=== PATIENT | female | born 1990 | race Two or more races ===

== ENCOUNTER 2017-05-20 16:12 | Emergency (ER) | payer OTHER ==
[~2017-05-20] VITALS: Ht 157.5 cm; Wt 63.5 kg
[2017-05-20 16:30] VITALS: BP 134/88
[2017-05-20] MEDS ORDERED: IV NORMAL SALINE 1000ML BAG 1,000 ML IV SCH (16:55)
--- NOTE | 2017-05-20 16:59 | PHYS DOC ---
Past Medical History Past Medical History: No Pertinent History Past Surgical History: No Surgical History Alcohol Use: Occasionally Drug Use: None Adult General Chief Complaint Chief Complaint: NAUSEA/VOMITING/DIARRHA HPI HPI Patient is a 26 year old [f__sex] who presents with [] Review of Systems Review of Systems Constitutional: Denies fever or chills [] Eyes: Denies change in visual acuity, redness, or eye pain [] HENT: Denies nasal congestion or sore throat [] Respiratory: Denies cough or shortness of breath [] Cardiovascular: No additional information not addressed in HPI [] GI: Denies abdominal pain, nausea, vomiting, bloody stools or diarrhea [] : Denies dysuria or hematuria [] Musculoskeletal: Denies back pain or joint pain [] Integument: Denies rash or skin lesions [] Neurologic: Denies headache, focal weakness or sensory changes [] Endocrine: Denies polyuria or polydipsia [] All other systems were reviewed and found to be within normal limits, except as documented in this note. Current Medications Current Medications Current Medications Medications (Trade) Dose Ordered Sig/Tomas Start Time Stop Time Status Last Admin Dose Admin Fentanyl Citrate (Fentanyl 2ml Vial) 25 mcg PRN Q15MIN PRN 05/20/17 17:00 05/21/17 16:59 05/20/17 17:26 25 MCG Ondansetron HCl (Zofran) 4 mg 1X ONCE 05/20/17 17:00 05/20/17 17:01 DC 05/20/17 17:25 4 MG Sodium Chloride (Normal Saline Flush) 10 ml QSHIFT PRN 05/20/17 17:00 05/20/17 17:25 10 ML Allergies Allergies Allergies Coded Allergies Type Severity Reaction Last Updated Verified No Known Drug Allergies 05/20/17 No Physical Exam Physical Exam Constitutional: Well developed, well nourished, no acute distress, non-toxic appearance. [] HENT: Normocephalic, atraumatic, bilateral external ears normal, oropharynx moist, no oral exudates, nose normal. [] Eyes: PERRLA, EOMI, conjunctiva normal, no discharge. [] Neck: Normal range of motion, no tenderness, supple, no stridor. [] Cardiovascular:Heart rate regular rhythm, no murmur [] Lungs & Thorax: Bilateral breath sounds clear to auscultation [] Abdomen: Bowel sounds normal, soft, no tenderness, no masses, no pulsatile masses. [] Skin: Warm, dry, no erythema, no rash. [] Back: No tenderness, no CVA tenderness. [] Extremities: No tenderness, no cyanosis, no clubbing, ROM intact, no edema. [] Neurologic: Alert and oriented X 3, normal motor function, normal sensory function, no focal deficits noted. [] Psychologic: Affect normal, judgement normal, mood normal. [] Current Patient Data Vital Signs Vital Signs Date Time Temp Pulse Resp B/P (MAP) Pulse Ox O2 Delivery O2 Flow Rate FiO2 05/20/17 17:26 Room Air 05/20/17 16:30 98.8 112 20 134/88 (103) 97 98.8 Lab Values Laboratory Tests Test 05/20/17 16:38 05/20/17 17:00 05/20/17 17:10 POC Urine HCG, Qualitative Hcg negative (Negative) Urine Collection Type Unknown Urine Color Marianela Urine Clarity Clear Urine pH 6.5 Urine Specific Edmond 1.025 Urine Protein Negative mg/dL (NEG-TRACE) Urine Glucose (UA) Negative mg/dL (NEG) Urine Ketones (Stick) Negative mg/dL (NEG) Urine Blood Negative (NEG) Urine Nitrite Negative (NEG) Urine Bilirubin Negative (NEG) Urine Urobilinogen Dipstick 1.0 mg/dL (0.2 mg/dL) Urine Leukocyte Esterase Small (NEG) Urine RBC 1-2 /HPF (0-2) Urine WBC 5-10 /HPF (0-4) Urine Squamous Epithelial Cells Mod /LPF Urine Bacteria Many /HPF (0-FEW) Urine Mucus Marked /LPF White Blood Count 12.3 x10^3/uL (4.0-11.0) H Red Blood Count 4.74 x10^6/uL (3.50-5.40) Hemoglobin 14.7 g/dL (12.0-15.5) Hematocrit 44.5 % (36.0-47.0) Mean Corpuscular Volume 94 fL (79-100) Mean Corpuscular Hemoglobin 31 pg (25-35) Mean Corpuscular Hemoglobin Concent 33 g/dL (31-37) Red Cell Distribution Width 12.6 % (11.5-14.5) Platelet Count 259 x10^3/uL (140-400) Neutrophils (%) (Auto) 83 % (31-73) H Lymphocytes (%) (Auto) 10 % (24-48) L Monocytes (%) (Auto) 6 % (0-9) Eosinophils (%) (Auto) 1 % (0-3) Basophils (%) (Auto) 0 % (0-3) Neutrophils # (Auto) 10.3 x10^3uL (1.8-7.7) H Lymphocytes # (Auto) 1.2 x10^3/uL (1.0-4.8) Monocytes # (Auto) 0.7 x10^3/uL (0.0-1.1) Eosinophils # (Auto) 0.1 x10^3/uL (0.0-0.7) Basophils # (Auto) 0.0 x10^3/uL (0.0-0.2) Sodium Level 140 mmol/L (136-145) Potassium Level 3.0 mmol/L (3.5-5.1) L Chloride Level 100 mmol/L (98-107) Carbon Dioxide Level 30 mmol/L (21-32) Anion Gap 10 (6-14) Blood Urea Nitrogen 8 mg/dL (7-20) Creatinine 0.7 mg/dL (0.6-1.0) Estimated GFR (Cockcroft-Gault) 100.4 Glucose Level 103 mg/dL (70-99) H Calcium Level 8.5 mg/dL (8.5-10.1) Total Bilirubin 0.3 mg/dL (0.2-1.0) Direct Bilirubin 0.1 mg/dL (0.0-0.2) Aspartate Amino Transferase (AST) 54 U/L (15-37) H Alanine Aminotransferase (ALT) 6 U/L (14-59) L Alkaline Phosphatase 69 U/L (46-116) Total Protein 7.2 g/dL (6.4-8.2) Albumin 3.2 g/dL (3.4-5.0) L Lipase 102 U/L (73-393) Laboratory Tests 05/20/17 17:10 Laboratory Tests 05/20/17 17:10 EKG EKG [] Radiology/Procedures Radiology/Procedures [] Course & Med Decision Making Course & Med Decision Making Pertinent Labs and Imaging studies reviewed. (See chart for details) []Patient tells me that their symptoms given during CC are improved. We reviewed labs with family at the bedside patient has a white count mildly elevated at 12.7 likely secondary to the effects of the nausea vomiting diarrhea. Patient is a low potassium of 3.0 likely from GI losses. Patient's CBC and CMP otherwise unremarkable. Patient's urinalysis demonstrates some bacteria and somewhat but cells consistent with any acute UTI. Patient does have a few epithelial cells as contaminated in the urine I will send it for culture prior to initiating treatment. Patient is not . Diarrheal story is not concerning for infectious etiology like some Shigella, Shigella, yserina , Escherichia coli. Patient's signs of improved patient is no longer tachycardic abdomen is soft and secondary exam. Dragon Disclaimer Dragon Disclaimer This electronic medical record was generated, in whole or in part, using a voice recognition dictation system. Departure Departure Impression: Primary Impression: Nausea and vomiting Additional Impressions: Diarrhea UTI (urinary tract infection) Disposition: HOME, SELF-CARE Condition: IMPROVED Referrals: NON,STAFF (PCP) Patient Instructions: Diarrhea, Nausea and Vomiting, Urinary Tract Infection Additional Instructions: My discharge plan Follow up: In addition patient is asked to followup with their primary doctor, within a week for followup examination and to address patient's ongoing medical conditions. . Patient is advised that in the Emergency Department primary complaints are addressed and only in light of known signs and symptoms. Patient should return immediately to the emergency department if new signs and symptoms develop or patient's condition worsens in any way. At time of discharge patient was in stable condition and had verbalized understanding of the discharge instructions. Although there is no obvious evidence of appendicitis or intra-abdominal catastrophe at this time requiring surgical intervention or immediate medical management you could still develop these issues in the future. I would ask that you return immediately for any increasing symptoms question concerns. Scripts Ondansetron (ZOFRAN ODT) 4 Mg Tab.rapdis 4 MG PO BID Y for NAUSEA/VOMITING for 5 Days, #10 TAB Prov: SHAAN CHA MD 05/20/17 Diphenoxylate Hcl/Atropine (LOMOTIL TABLET) 1 Each Tablet 1 TAB PO QID, #20 TAB Prov: SHAAN CHA MD 05/20/17 Ciprofloxacin Hcl (CIPRO) 500 Mg Tablet 1 TAB PO BID, #20 TAB Prov: SHAAN CHA MD 05/20/17 Problem Qualifiers SHAAN CHA MD May 20, 2017 16:59
[2017-05-20] MEDS ORDERED: ONDANSETRON PF 4 MG/2 ML VIAL. IV ONE (17:00)
[2017-05-20] MEDS ORDERED: fentaNYL PF VIAL 100 MCG/2 ML VIAL IV PRN (17:00)
[2017-05-20] MEDS ORDERED: 0.9 % SODIUM CHLORIDE 10 ML DISP.SYRIN. IV PRN (17:00)
[2017-05-20 17:12] LABS: BILIRUBIN,URINE NEGATIVE (NEG); GLUCOSE,URINE NEGATIVE (NEG); NITRITE,URINE NEGATIVE (NEG); PH,URINE 6.5; PROTEIN,URINE NEGATIVE (NEG-TRACE)
[2017-05-20 17:14] LABS: BASO % 0 % (0-3); EOS % 1 % (0-3); HEMATOCRIT 44.5 % (36.0-47.0); HEMOGLOBIN 14.7 g/dL (12.0-15.5); LYMPH # 1.2 x10^3/uL (1.0-4.8); LYMPH % 10 % (24-48); MEAN CORPUSCULAR HEMOGLOBIN 31 pg (25-35); MEAN CORPUSCULAR HGB CONC 33 g/dL (31-37); MEAN CORPUSCULAR VOLUME 94 fL (79-100); MONO % 6 % (0-9); NEUT % 83 % (31-73); PLATELET COUNT 259 x10^3/uL (140-400); RED BLOOD COUNT 4.74 x10^6/uL (3.50-5.40); RED CELL DISTRIBUTION WIDTH 12.6 % (11.5-14.5); WHITE BLOOD COUNT 12.3 x10^3/uL (4.0-11.0)
[2017-05-20 17:20] LABS: BACTERIA,URINE MANY /HPF (0-FEW); SQUAMOUS EPITHELIAL CELL,UR MOD /LPF
[2017-05-20 17:36] LABS: CALCIUM 8.5 mg/dL (8.5-10.1); CREATININE 0.7 mg/dL (0.6-1.0); GFR 100.4
[2017-05-20 17:41] LABS: ALBUMIN 3.2 g/dL (3.4-5.0); DIRECT BILIRUBIN 0.1 mg/dL (0.0-0.2); TOTAL BILIRUBIN 0.3 mg/dL (0.2-1.0); TOTAL PROTEIN 7.2 g/dL (6.4-8.2)
[2017-05-20] MEDS ORDERED: DIPH1TAB PO (18:05)
[2017-05-20] MEDS ORDERED: CIPR500T94 PO (18:05)
[2017-05-20] MEDS ORDERED: ONDA4TAB10 PO (18:05)
== END 2017-05-20 18:14 | disposition home or self-care (01) ==
LOC: ER 16:12
DX: N39.0 Urinary tract infection, site not specified (principal); R19.7 Diarrhea, unspecified
CPT/HCPCS: 36415; 80048; 80076; 81001; 81025; 83690; 85025; 87086; 96361; 96374; 96375; 99284; J2405; J3010; J7030

== ENCOUNTER 2018-03-04 01:05 | Emergency (ER) | payer OTHER ==
[~2018-03-04] VITALS: Ht 160 cm; Wt 65.8 kg
[~2018-03-04 01:05] MED LIST: CIPR500T94 PO; DIPH1TAB PO; ONDA4TAB10 PO
[2018-03-04 02:13] VITALS: BP 132/65
[2018-03-04] MEDS ORDERED: PROCHLORPERAZINE 10 MG/2 ML VIAL. IV ONE (03:15)
[2018-03-04] MEDS ORDERED: IV NORMAL SALINE 1000ML BAG 1,000 ML IV ONE (03:15)
[2018-03-04] MEDS ORDERED: diphenhydrAMINE 50 MG/ML VIAL IVP ONE (03:15)
--- NOTE | 2018-03-04 04:18 | PHYS DOC ---
Past Medical History Past Medical History: No Pertinent History Past Surgical History: No Surgical History Alcohol Use: Occasionally Drug Use: None Adult General Chief Complaint Chief Complaint: HEADACHE HPI HPI Patient is a 27 year old female who presents with headache. Patient complains of a frontotemporal headache over the last 2 days. She does have a prior history of headaches and does have migraine medication at home. She took her medicine this evening but it did not relieve her symptoms. She has some photophobia and mild nausea but no vomiting. She has not had a fever, chills, neck stiffness, or rash. She states this headache feels very similar to prior headaches she has had in the past. The headache did not begin suddenly. Review of Systems Review of Systems Constitutional: Denies fever or chills Eyes: Denies change in visual acuity HENT: Denies nasal congestion Respiratory: Denies cough Cardiovascular: No additional information GI: Denies abdominal complaints : Denies dysuria or hematuria Integument: Denies rash or skin lesions Neurologic: Denies focal neuro complaints Endocrine: Denies polyuria All other systems were reviewed and found to be within normal limits, except as documented in this note. Current Medications Current Medications Current Medications Medications (Trade) Dose Ordered Sig/Tomas Start Time Stop Time Status Last Admin Dose Admin Diphenhydramine HCl (Benadryl) 25 mg 1X ONCE 03/04/18 03:15 03/04/18 03:16 DC 03/04/18 03:22 25 MG Prochlorperazine Edisylate (Compazine) 10 mg 1X ONCE 03/04/18 03:15 03/04/18 03:16 DC 03/04/18 03:22 10 MG Sodium Chloride 1,000 ml @ 1,000 mls/hr 1X ONCE 03/04/18 03:15 03/04/18 04:14 DC 03/04/18 03:22 1,000 MLS/HR Allergies Allergies Allergies Coded Allergies Type Severity Reaction Last Updated Verified No Known Drug Allergies 05/20/17 No Physical Exam Physical Exam Constitutional: Well developed, well nourished, no acute distress, non-toxic appearance HENT: Normocephalic, atraumatic, bilateral external ears normal, oropharynx moist Eyes: PERRLA, EOMI, conjunctiva normal, no discharge Neck: Normal range of motion, no tenderness, supple Cardiovascular:Heart rate regular rhythm, no murmur Lungs & Thorax: Bilateral breath sounds clear to auscultation Abdomen: Bowel sounds normal, soft Skin: Warm, dry, no erythema, no rash Extremities: Normal exam Neurologic: Alert and oriented X 3, normal motor function, normal sensory function, no focal deficits noted Psychologic: Affect normal Current Patient Data Vital Signs Vital Signs Date Time Temp Pulse Resp B/P (MAP) Pulse Ox O2 Delivery O2 Flow Rate FiO2 03/04/18 01:35 98.1 87 16 124/77 (93) 98 Room Air 98.1 Lab Values Laboratory Tests Test 03/04/18 03:28 POC Urine HCG, Qualitative Hcg negative (Negative) EKG EKG [] Radiology/Procedures Radiology/Procedures [] Course & Med Decision Making Course & Med Decision Making Pertinent Labs and Imaging studies reviewed. (See chart for details) In the emergency department for a migraine headache which she stated to be very typical for her normal syndrome. She was given a single dose of Compazine and Benadryl which did completely resolve her symptoms. She had no nausea or vomiting. Her neurologic exam was nonfocal. She had no signs of meningismus. Patient was discharged home. She was advised to follow-up with her primary care doctor or return to the ER for any new or worsening symptoms. Dragon Disclaimer Dragon Disclaimer This electronic medical record was generated, in whole or in part, using a voice recognition dictation system. Departure Departure Referrals: UNKNOWN PCP NAME (PCP) ADAIR GRIER DO Mar 04, 2018 04:18
== END 2018-03-04 04:40 | disposition home or self-care (01) ==
LOC: ER 01:05
DX: R51 Headache (principal); G43.909 Migraine, unspecified, not intractable, without status migrainosus
CPT/HCPCS: 81025; 96374; 96375; 99284; J0780; J1200; J7030

== ENCOUNTER 2018-05-22 23:40 | Emergency (ER) | payer OTHER ==
[~2018-05-22] VITALS: Ht 157.5 cm; Wt 65.8 kg
[2018-05-22 23:57] VITALS: BP 141/90
[2018-05-23] MEDS ORDERED: METH4TAB2 PO (00:15)
[2018-05-23] MEDS ORDERED: DICL50TA2 PO (00:15)
[2018-05-23] MEDS ORDERED: CYCL10TA2 PO (00:15)
--- NOTE | 2018-05-23 00:15 | PHYS DOC ---
Past Medical History Past Medical History: No Pertinent History Past Surgical History: No Surgical History Alcohol Use: Occasionally Drug Use: None Adult General Chief Complaint Chief Complaint: HIP PAIN HPI HPI Patient is a 27 year old female with no significant medical history who presents today complaining of mild bilateral low back radiating to bilateral lower extremities that began 2 days ago. Denies any known injury. Denies any urgency frequency dysuria. Denies any chance she is . States the pain is worse on certain movements. States has been taking ibuprofen but the pain has not cleared all the way. Review of Systems Review of Systems Constitutional: Denies fever or chills [] Eyes: Denies change in visual acuity, redness, or eye pain [] HENT: Denies nasal congestion or sore throat [] Respiratory: Denies cough or shortness of breath [] Cardiovascular: No additional information not addressed in HPI [] GI: Denies abdominal pain, nausea, vomiting, bloody stools or diarrhea [] : Denies dysuria or hematuria [] Musculoskeletal: Reports bilateral low back pain radiating to bilateral lower extremities Integument: Denies rash or skin lesions [] Neurologic: Denies headache, focal weakness or sensory changes [] All other systems were reviewed and found to be within normal limits, except as documented in this note. Current Medications Current Medications Current Medications Medications (Trade) Dose Ordered Sig/[facility] Start Time Stop Time Status Last Admin Dose Admin Acetaminophen/ Hydrocodone Bitart (Lortab 5/325) 1 tab 1X ONCE 05/23/18 00:30 05/23/18 00:31 Cyclobenzaprine HCl (Flexeril) 10 mg 1X ONCE 05/23/18 00:15 05/23/18 00:16 UNV Naproxen (Naprosyn) 500 mg 1X STAT 05/23/18 00:09 05/23/18 00:10 UNV Allergies Allergies Allergies Coded Allergies Type Severity Reaction Last Updated Verified No Known Drug Allergies 05/20/17 No Physical Exam Physical Exam Constitutional: Well developed, well nourished, no acute distress, non-toxic appearance. [] HENT: Normocephalic, atraumatic, bilateral external ears normal, oropharynx moist, no oral exudates, nose normal. [] Eyes: PERRLA, EOMI, conjunctiva normal, no discharge. [] Neck: Normal range of motion, no tenderness, supple, no stridor. [] Cardiovascular:Heart rate regular rhythm, no murmur [] Lungs & Thorax: Bilateral breath sounds clear to auscultation [] Abdomen: Bowel sounds normal, soft, no tenderness, no masses, no pulsatile masses. [] Skin: Warm, dry, no erythema, no rash. [] Back: No tenderness, no CVA tenderness. [] Extremities: No tenderness, no cyanosis, no clubbing, ROM intact, no edema. [] Neurologic: Alert and oriented X 3, normal motor function, normal sensory function, no focal deficits noted. [] Psychologic: Affect normal, judgement normal, mood normal. [] Current Patient Data Vital Signs Vital Signs Date Time Temp Pulse Resp B/P (MAP) Pulse Ox O2 Delivery O2 Flow Rate FiO2 05/22/18 23:57 97.9 102 16 141/90 (107) 98 Room Air 97.9 EKG EKG [] Radiology/Procedures Radiology/Procedures [] Course & Med Decision Making Course & Med Decision Making Pertinent Labs and Imaging studies reviewed. (See chart for details) This is a 27-year-old female patient presenting to the ED today with pain suspicious of sciatica. Will be discharged with Medrol Dosepak, cyclobenzaprine and diclofenac. Heat recommended to the lumbar spine. Follow-up with PCP in 1-2 weeks. Tawanna Disclaimer Tawanna Disclaimer This electronic medical record was generated, in whole or in part, using a voice recognition dictation system. Departure Departure Impression: Primary Impression: Sciatic leg pain Additional Impression: Low back pain Disposition: 01 HOME, SELF-CARE Condition: STABLE Referrals: UNKNOWN PCP NAME (PCP) follow up in 1-2 weeks Patient Instructions: Sciatica Additional Instructions: You were evaluated in the emergency room for pain. We put you on medications, take them as needed for pain. Apply heat to the affected areas. Follow-up with your own doctor in 1-2 weeks as needed. Scripts Cyclobenzaprine Hcl (CYCLOBENZAPRINE HCL) 10 Mg Tablet 1 TAB PO TID, #30 TAB Prov: MUTUNGA,IAM [employer] 05/23/18 Diclofenac Potassium (DICLOFENAC POTASSIUM) 50 Mg Tablet 1 TAB PO BID, #60 TAB 0 Refills Prov: MUTUNGA,IAM [employer] 05/23/18 Methylprednisolone (MEDROL) 4 Mg Tab.ds.pk 1 PKG PO UD, #1 PKG Prov: IAM MCGRATH [employer] 05/23/18 Problem Qualifiers Additional Impression: Low back pain Chronicity: acute Back pain laterality: bilateral Sciatica presence: with sciatica Sciatica laterality: bilateral sciatica Qualified Codes: M54.42 - Lumbago with sciatica, left side; M54.41 - Lumbago with sciatica, right side IAM MCGRATH JUNE May 23, 2018 00:15
[2018-05-23] MEDS: HYDROcodone/APAP 5/325MG 1 TAB TABLET PO ONE (00:20)
[2018-05-23] MEDS: CYCLOBENZAPRINE 10 MG TABLET. PO ONE (00:20)
[2018-05-23] MEDS: NAPROXEN 500 MG TABLET PO ONE (00:20)
== END 2018-05-23 00:23 | disposition home or self-care (01) ==
LOC: ER 23:40
DX: M54.42 Lumbago with sciatica, left side (principal); M54.41 Lumbago with sciatica, right side
CPT/HCPCS: 99284

== ENCOUNTER 2018-06-07 23:39 | Emergency (ER) | payer OTHER ==
[~2018-06-07] VITALS: Ht 157.5 cm; Wt 67.1 kg
[~2018-06-07 23:39] MED LIST changes: +CYCL10TA2 PO; +DICL50TA2 PO; +METH4TAB2 PO
--- NOTE | 2018-06-08 00:32 | PHYS DOC ---
Past Medical History Past Medical History: No Pertinent History Past Surgical History: No Surgical History Alcohol Use: Occasionally Drug Use: None Adult General Chief Complaint Chief Complaint: ABDOMINAL PAIN HPI HPI Patient is a 27 year old female who presents with mid abdominal pain. This started several hours prior to arrival. Some nausea, no vomiting. Cramping sensation. No change in food. Patient did start her menses today. No worse than usual for her menses and this discomfort is an a different location. No history of similar discomfort. No home medicines attempted. Pain is moderate in intensity. Nothing seems to make it better or worse.[] Review of Systems Review of Systems Constitutional: Denies fever or chills [] Eyes: Denies change in visual acuity, redness, or eye pain [] HENT: Denies nasal congestion or sore throat [] Respiratory: Denies cough or shortness of breath [] Cardiovascular: No chest pain or palpitations[] GI: See history of present illness[] : Denies dysuria or hematuria [] Musculoskeletal: Denies back pain or joint pain [] Integument: Denies rash or skin lesions [] Neurologic: Denies headache, focal weakness or sensory changes. Some dizziness. Described as a lightheaded sensation [] Endocrine: Denies polyuria or polydipsia [] All other systems were reviewed and found to be within normal limits, except as documented in this note. Current Medications Current Medications Current Medications Medications (Trade) Dose Ordered Sig/Tomas Start Time Stop Time Status Last Admin Dose Admin Hyoscyamine (Anaspaz) 0.125 mg ONCE ONCE 06/08/18 01:00 06/08/18 01:01 DC 06/08/18 01:10 0.125 MG Info (CONTRAST GIVEN -- Rx MONITORING) 1 each PRN DAILY PRN 06/08/18 02:15 06/10/18 02:14 Iohexol (Omnipaque 300 Mg/ml) 75 ml 1X ONCE 06/08/18 02:30 06/08/18 02:31 DC 06/08/18 02:11 75 ML Ondansetron HCl (Zofran) 4 mg 1X ONCE 06/08/18 01:00 06/08/18 01:01 DC 06/08/18 01:10 4 MG Sodium Chloride 1,000 ml @ 1,000 mls/hr Q1H 06/08/18 01:00 06/08/18 01:59 DC 06/08/18 01:10 1,000 MLS/HR Allergies Allergies Allergies Coded Allergies Type Severity Reaction Last Updated Verified No Known Drug Allergies 05/20/17 No Physical Exam Physical Exam Constitutional: Well developed, well nourished, no acute distress, non-toxic appearance. [] HENT: Normocephalic, atraumatic, bilateral external ears normal, oropharynx moist, no oral exudates, nose normal. [] Eyes: PERRLA, EOMI, conjunctiva normal, no discharge. [] Neck: Normal range of motion, no tenderness, supple, no stridor. [] Cardiovascular:Heart rate regular rhythm, no murmur [] Lungs & Thorax: Bilateral breath sounds clear to auscultation [] Abdomen: Bowel sounds normal, soft, periumbilical, no masses, no pulsatile masses. [] Skin: Warm, dry, no erythema, no rash. [] Back: No tenderness, no CVA tenderness. [] Extremities: No tenderness, no cyanosis, no clubbing, ROM intact, no edema. [] Neurologic: Alert and oriented X 3, normal motor function, normal sensory function, no focal deficits noted. [] Psychologic: Affect normal, judgement normal, mood normal. [] Current Patient Data Vital Signs Vital Signs Date Time Temp Pulse Resp B/P (MAP) Pulse Ox O2 Delivery O2 Flow Rate FiO2 06/08/18 00:20 98.4 83 16 135/84 (101) 97 Room Air 98.4 Lab Values Laboratory Tests Test 06/08/18 00:01 06/08/18 00:30 06/08/18 01:05 Urine Collection Type Unknown Urine Color Yellow Urine Clarity Clear Urine pH 6.0 Urine Specific [place] 1.025 Urine Protein Negative mg/dL (NEG-TRACE) Urine Glucose (UA) Negative mg/dL (NEG) Urine Ketones (Stick) Negative mg/dL (NEG) Urine Blood Large (NEG) Urine Nitrite Negative (NEG) Urine Bilirubin Negative (NEG) Urine Urobilinogen Dipstick 0.2 mg/dL (0.2 mg/dL) Urine Leukocyte Esterase Small (NEG) Urine RBC 0 /HPF (0-2) Urine WBC 5-10 /HPF (0-4) Urine Squamous Epithelial Cells Mod /LPF Urine Bacteria Few /HPF (0-FEW) Urine Mucus Marked /LPF POC Urine HCG, Qualitative Hcg negative (Negative) White Blood Count 9.9 x10^3/uL (4.0-11.0) Red Blood Count 4.45 x10^6/uL (3.50-5.40) Hemoglobin 14.6 g/dL (12.0-15.5) Hematocrit 41.2 % (36.0-47.0) Mean Corpuscular Volume 93 fL (79-100) Mean Corpuscular Hemoglobin 33 pg (25-35) Mean Corpuscular Hemoglobin Concent 35 g/dL (31-37) Red Cell Distribution Width 12.2 % (11.5-14.5) Platelet Count 259 x10^3/uL (140-400) Neutrophils (%) (Auto) 75 % (31-73) H Lymphocytes (%) (Auto) 14 % (24-48) L Monocytes (%) (Auto) 7 % (0-9) Eosinophils (%) (Auto) 3 % (0-3) Basophils (%) (Auto) 1 % (0-3) Neutrophils # (Auto) 7.4 x10^3uL (1.8-7.7) Lymphocytes # (Auto) 1.4 x10^3/uL (1.0-4.8) Monocytes # (Auto) 0.7 x10^3/uL (0.0-1.1) Eosinophils # (Auto) 0.3 x10^3/uL (0.0-0.7) Basophils # (Auto) 0.1 x10^3/uL (0.0-0.2) Sodium Level 138 mmol/L (136-145) Potassium Level 4.0 mmol/L (3.5-5.1) Chloride Level 101 mmol/L (98-107) Carbon Dioxide Level 25 mmol/L (21-32) Anion Gap 12 (6-14) Blood Urea Nitrogen 8 mg/dL (7-20) Creatinine 0.7 mg/dL (0.6-1.0) Estimated GFR (Cockcroft-Gault) 99.6 BUN/Creatinine Ratio 11 (6-20) Glucose Level 91 mg/dL (70-99) Calcium Level 9.5 mg/dL (8.5-10.1) Total Bilirubin 0.4 mg/dL (0.2-1.0) Aspartate Amino Transferase (AST) 131 U/L (15-37) H Alanine Aminotransferase (ALT) 19 U/L (14-59) Alkaline Phosphatase 89 U/L (46-116) Total Protein 7.7 g/dL (6.4-8.2) Albumin 3.6 g/dL (3.4-5.0) Albumin/Globulin Ratio 0.9 (1.0-1.7) L Lipase 68 U/L (73-393) L Laboratory Tests 06/08/18 01:05 Laboratory Tests 06/08/18 01:05 EKG EKG [] Radiology/Procedures Radiology/Procedures CT scan of the abdomen and pelvis FINDINGS: The lung bases are clear. There may be mild fatty infiltration of the liver. No focal liver lesion is seen. Spleen appears normal. Both kidneys enhance with contrast. No mass or obstruction is seen. The adrenal glands are not enlarged. The pancreas appears normal. No retroperitoneal or mesenteric adenopathy is seen. There is no apparent abdominal soft tissue mass or inflammatory process. Evaluation of the GI tract is slightly limited by noncontrast technique. A normal appendix is thought to be shown extending medially from the cecum. Images through the pelvis show no abnormality of the distal ureters. The bladder wall appears mildly thickened, although the bladder was not well-distended for the exam. No pelvic or inguinal adenopathy is seen. The uterus and left adnexal area appear normal for age. There is evidence of a small right ovarian cyst measuring about 1.8 cm. No separate pelvic mass or inflammatory process is seen. IMPRESSION: No definite acute findings. There may be mild bladder wall thickening, as could be seen with mild cystitis. There is a small right ovarian cyst.[] Course & Med Decision Making Course & Med Decision Making Pertinent Labs and Imaging studies reviewed. (See chart for details) ED course: Patient arrived, was placed in bed, tolerated exam well. Patient was transported to and from [place] without any complications. Patient reported getting good pain relief with the medications administered. After the return of laboratory and imaging findings, these were discussed with the patient and her family who voiced understanding. All questions were answered. Medical decision making: There is no evidence of appendicitis, cholecystitis, pyelonephritis, nor other intra-abdominal surgical pathology at this time. Her urine is noted to have the white cells along with the epithelial cells. Given the CT findings will treat for urinary tract infection.[] Dragon Disclaimer Dragon Disclaimer This electronic medical record was generated, in whole or in part, using a voice recognition dictation system. Departure Departure Impression: Primary Impression: Abdominal pain Additional Impression: Urinary tract infection Disposition: 01 HOME, SELF-CARE Condition: GOOD Referrals: UNKNOWN PCP NAME (PCP) Patient Instructions: Abdominal Pain, Urinary Tract Infection Additional Instructions: Plenty of fluids. Follow-up with your regular doctor in 2 days. If you do not have a regular doctor a list of local low-cost clinics will be provided. Return to the ER if worsening pain or any other concerns. Scripts Metoclopramide Hcl (REGLAN) 10 Mg Tablet 10 MG PO QIDACHS, #30 TAB 0 Refills Prov: WILLY FLOWERS DO 06/08/18 Cephalexin (CEPHALEXIN) 500 Mg Tablet 1 TAB PO TID, #30 TAB Prov: WILLY FLOWERS DO 06/08/18 Hyoscyamine Sulfate (LEVSIN) 0.125 Mg Tablet 0.125 MG PO QID, #30 TAB Prov: WILLY FLOWERS DO 06/08/18 Problem Qualifiers Primary Impression: Abdominal pain Abdominal location: periumbilical Qualified Codes: R10.33 - Periumbilical pain Additional Impression: Urinary tract infection Urinary tract infection type: site unspecified Hematuria presence: without hematuria Qualified Codes: N39.0 - Urinary tract infection, site not specified WILLY FLOWERS DO Jun 08, 2018 00:32
[2018-06-08 00:35] LABS: BILIRUBIN,URINE NEGATIVE (NEG); CLARITY,URINE CLEAR; COLOR,URINE YELLOW; NITRITE,URINE NEGATIVE (NEG); PROTEIN,URINE NEGATIVE (NEG-TRACE); UROBILINOGEN,URINE 0.2 mg/dL (0.2 mg/dL)
[2018-06-08 00:57] LABS: BACTERIA,URINE FEW /HPF (0-FEW); RBC,URINE 0 /HPF (0-2); SQUAMOUS EPITHELIAL CELL,UR MOD /LPF
[2018-06-08] MEDS ORDERED: ONDANSETRON PF 4 MG/2 ML VIAL. IV ONE (01:00)
[2018-06-08] MEDS ORDERED: HYOSCYAMINE 0.125 MG TAB.RAPDIS PO ONE (01:00)
[2018-06-08] MEDS ORDERED: IV NORMAL SALINE 1000ML BAG 1,000 ML IV SCH (01:00)
[2018-06-08 01:22] LABS: BASO # 0.1 x10^3/uL (0.0-0.2); BASO % 1 % (0-3); EOS # 0.3 x10^3/uL (0.0-0.7); EOS % 3 % (0-3); HEMATOCRIT 41.2 % (36.0-47.0); HEMOGLOBIN 14.6 g/dL (12.0-15.5); LYMPH # 1.4 x10^3/uL (1.0-4.8); LYMPH % 14 % (24-48); MEAN CORPUSCULAR HEMOGLOBIN 33 pg (25-35); MEAN CORPUSCULAR HGB CONC 35 g/dL (31-37); MEAN CORPUSCULAR VOLUME 93 fL (79-100); MONO # 0.7 x10^3/uL (0.0-1.1); MONO % 7 % (0-9); NEUT # 7.4 x10^3uL (1.8-7.7); NEUT % 75 % (31-73); PLATELET COUNT 259 x10^3/uL (140-400); RED BLOOD COUNT 4.45 x10^6/uL (3.50-5.40); RED CELL DISTRIBUTION WIDTH 12.2 % (11.5-14.5); WHITE BLOOD COUNT 9.9 x10^3/uL (4.0-11.0)
[2018-06-08 01:53] LABS: CALCIUM 9.5 mg/dL (8.5-10.1); CREATININE 0.7 mg/dL (0.6-1.0); GFR 99.6
[2018-06-08 01:58] LABS: ALBUMIN 3.6 g/dL (3.4-5.0); ALBUMIN/GLOBULIN RATIO 0.9 (1.0-1.7); TOTAL BILIRUBIN 0.4 mg/dL (0.2-1.0); TOTAL PROTEIN 7.7 g/dL (6.4-8.2)
[2018-06-08] MEDS ORDERED: CONTRAST GIVEN. MC PRN (02:15)
[2018-06-08] MEDS ORDERED: IOHEXOL 300 MG/ML 100ML VIAL. IV ONE (02:30)
--- NOTE | 2018-06-08 02:35 | RAD ---
CT of the abdomen and pelvis with IV contrast 06/08/2018. Reason for exam: Mid abdominal pain for a few hours. CT images were performed through the abdomen and pelvis using an infusion of 75 mL Omnipaque 300. No oral contrast was given. Exposure: One or more of the following individualized dose reduction techniques were utilized for this examination: 1. Automated exposure control 2. Adjustment of the mA and/or kV according to patient size 3. Use of iterative reconstruction technique. FINDINGS: The lung bases are clear. There may be mild fatty infiltration of the liver. No focal liver lesion is seen. Spleen appears normal. Both kidneys enhance with contrast. No mass or obstruction is seen. The adrenal glands are not enlarged. The pancreas appears normal. No retroperitoneal or mesenteric adenopathy is seen. There is no apparent abdominal soft tissue mass or inflammatory process. Evaluation of the GI tract is slightly limited by noncontrast technique. A normal appendix is thought to be shown extending medially from the cecum. Images through the pelvis show no abnormality of the distal ureters. The bladder wall appears mildly thickened, although the bladder was not well-distended for the exam. No pelvic or inguinal adenopathy is seen. The uterus and left adnexal area appear normal for age. There is evidence of a small right ovarian cyst measuring about 1.8 cm. No separate pelvic mass or inflammatory process is seen. IMPRESSION: No definite acute findings. There may be mild bladder wall thickening, as could be seen with mild cystitis. There is a small right ovarian cyst. Electronically signed by: Sammy Prieto Jr., MD (06/08/2018 2:31 AM) [facility]
[2018-06-08 02:42] VITALS: BP 155/94
[2018-06-08] MEDS ORDERED: METO10TA81 PO (02:42)
[2018-06-08] MEDS ORDERED: HYOS0.1264 PO (02:42)
[2018-06-08] MEDS ORDERED: CEPH500T PO (02:42)
== END 2018-06-08 02:45 | disposition home or self-care (01) ==
LOC: ER 23:39
DX: N39.0 Urinary tract infection, site not specified (principal); N83.201 Unspecified ovarian cyst, right side; R42 Dizziness and giddiness
CPT/HCPCS: 36415; 74177; 80053; 81001; 81025; 83690; 85025; 87086; J2405; J7030; Q9967; 96361; 96374; 99284-25

== ENCOUNTER 2019-05-27 22:22 | Emergency (ER) | payer SELFPAY ==
[~2019-05-27] VITALS: Ht 157.5 cm; Wt 64.9 kg
[~2019-05-27 22:22] MED LIST changes: +CEPH500T PO; +HYOS0.1264 PO; +METO10TA81 PO
[2019-05-27 22:42] VITALS: BP 136/68
[2019-05-27] MEDS ORDERED: PROMETHAZINE 12.5 MG TABLET. PO ONE (23:00)
[2019-05-27] MEDS ORDERED: KETOROLAC 60 MG/2 ML VIAL. IM ONE (23:00)
[2019-05-27] MEDS ORDERED: predniSONE 20 MG TABLET PO ONE (23:00)
[2019-05-27] MEDS ORDERED: PRED50TA PO (23:15)
[2019-05-27] MEDS ORDERED: DICL50TA2 PO (23:15)
--- NOTE | 2019-05-27 23:15 | PHYS DOC ---
Past Medical History Past Medical History: No Pertinent History (IAM MCGRATH APRN) Past Surgical History: No Surgical History (IAM MCGRATH APRN) Alcohol Use: Occasionally Drug Use: None (IAM MCGRATH APRN) Adult General Chief Complaint Chief Complaint: HEADACHE HPI HPI Patient is a 28 year old female witha medical history who presents to the ED today complaining of frontal headache bilaterally and feeling tired that began around 3 PM after getting off work. Patient denies any photophobia, denies any nausea, vomiting, denies any history of migraine headaches. She reports she took a low dose ibuprofen with no relief. Denies any exacerbating or relieving factors to her headache. (IAM MCGRATH APRN) Review of Systems Review of Systems Constitutional: Denies fever or chills [] Eyes: Denies change in visual acuity, redness, or eye pain [] HENT: Denies nasal congestion or sore throat [] Respiratory: Denies cough or shortness of breath [] Cardiovascular: No additional information not addressed in HPI [] GI: Denies abdominal pain, nausea, vomiting, bloody stools or diarrhea [] : Denies dysuria or hematuria [] Musculoskeletal: Denies back pain or joint pain [] Integument: Denies rash or skin lesions [] Neurologic: Reports headache, denies, focal weakness or sensory changes [] All other systems were reviewed and found to be within normal limits, except as documented in this note. (IAM MCGRATH APRN) Current Medications Current Medications Current Medications Medications (Trade) Dose Ordered Sig/Tomas Start Time Stop Time Status Last Admin Dose Admin Ketorolac Tromethamine (Toradol Im) 60 mg 1X ONCE 05/27/19 23:00 05/27/19 23:01 DC 05/28/19 00:03 60 MG Prednisone (Prednisone) 60 mg 1X ONCE 05/27/19 23:00 05/27/19 23:01 DC 05/28/19 00:02 60 MG Promethazine HCl (Phenergan) 12.5 mg 1X ONCE 05/27/19 23:00 05/27/19 23:01 DC 05/28/19 00:02 12.5 MG (KAREEM EAST DO) Allergies Allergies Allergies Coded Allergies Type Severity Reaction Last Updated Verified No Known Drug Allergies 05/20/17 No (KAREEM EAST DO) Physical Exam Physical Exam Constitutional: Well developed, well nourished, no acute distress, non-toxic appearance. [] HENT: Normocephalic, atraumatic, bilateral external ears normal, oropharynx moist, no oral exudates, nose normal. [] Eyes: PERRLA, EOMI, conjunctiva normal, no discharge. [] Neck: Normal range of motion, no tenderness, supple, no stridor. [] Cardiovascular:Heart rate regular rhythm, no murmur [] Lungs & Thorax: Bilateral breath sounds clear to auscultation [] Abdomen: Bowel sounds normal, soft, no tenderness, no masses, no pulsatile deirdre s. [] Skin: Warm, dry, no erythema, no rash. [] Back: No tenderness, no CVA tenderness. [] Extremities: No tenderness, no cyanosis, no clubbing, ROM intact, no edema. [] Neurologic: Alert and oriented X 3, normal motor function, normal sensory function, no focal deficits noted. Cranial nerves II through XII intact Psychologic: Affect normal, judgement normal, mood normal. [] (IAM MCGRATH APRN) Current Patient Data Vital Signs Vital Signs Date Time Temp Pulse Resp B/P (MAP) Pulse Ox O2 Delivery O2 Flow Rate FiO2 05/27/19 22:42 98.7 108 12 136/68 (90) 98 Room Air 98.7 (KAREEM EAST DO) EKG EKG [] (IAM MCGRATH APRN) Radiology/Procedures Radiology/Procedures [] (IAM MCGRATH APRN) Course & Med Decision Making Course & Med Decision Making Pertinent Labs and Imaging studies reviewed. (See chart for details) This is a 28-year-old female patient presenting to the ED today with a headache that began at 3 PM after getting off work, patient is also complaining of fatigue. Neurological exam is intact. She'll be provided headache medications and discharged to home. (IAM MCGRATH APRN) Dragon Disclaimer Dragon Disclaimer This electronic medical record was generated, in whole or in part, using a voice recognition dictation system. (IAM MCGRATH APRN) Departure Departure Impression: Primary Impression: Headache Disposition: 01 HOME, SELF-CARE Condition: STABLE Referrals: UNKNOWN PCP NAME (PCP) EMELY BAILEY MD follow up with your doctor in 1-2 weeks Patient Instructions: Headache, FAQs Additional Instructions: You were evaluated in the emergency room for headache and feeling tired. We recommend you try and rest, push fluids. Take the prescribed medications as ordered. Follow-up with your doctor in the next 1-2 weeks. Scripts Diclofenac Potassium (DICLOFENAC POTASSIUM) 50 Mg Tablet 1 TAB PO BID, #20 TAB 0 Refills Prov: IAM MCGRATH JUNE 05/27/19 Prednisone (PREDNISONE) 50 Mg Tablet 1 TAB PO DAILY, #4 TAB Prov: IAM MCGRATH APRN 05/27/19 Attending Signature Attending Signature I have reviewed the PA/[employer] DIRECT[employer]'s note and plan of care. I was available for consultation as needed during the patient's visit in the emergency department. I agree with the clinical impression, plan, and disposition. (KAREEM EAST DO) Problem Qualifiers Primary Impression: Headache Headache type: unspecified Headache chronicity pattern: acute headache Intractability: not intractable Qualified Codes: R51 - Headache IAM MCGRATH JUNE May 27, 2019 23:15 KAREEM EAST DO May 28, 2019 04:00
== END 2019-05-28 00:05 | disposition home or self-care (01) ==
LOC: ER 22:22
DX: R51 Headache (principal); Z79.899 Other long term (current) drug therapy
CPT/HCPCS: 96372; 99283; J1885; J7512; Q0169

== ENCOUNTER 2019-09-11 01:06 | Emergency (ER) | payer OTHER ==
[~2019-09-11] VITALS: Ht 157.5 cm; Wt 60.0 kg
[~2019-09-11 01:06] MED LIST changes: +PRED50TA PO
[2019-09-11 01:15] VITALS: BP 134/88
--- NOTE | 2019-09-11 01:40 | PHYS DOC ---
Past Medical History Past Medical History: No Pertinent History Past Surgical History: No Surgical History Smoking Status: Never Smoker Alcohol Use: Occasionally Drug Use: None Adult General Chief Complaint Chief Complaint: CHEST PAIN HPI HPI 29-year-old female presents to the emergency department complaints of chest pain, headache, fever. She denies any abdominal pain, nausea or vomiting. [place] her last menstrual period was August 31. She denies any neck pain. She has had some cough however decreased productiveness. Pain comes and goes currently denies any chest pain at this time. She more complains of her headache. Nothing makes pain worse, nothing make pain better. Review of Systems Review of Systems Constitutional: fever/chills Respiratory: cough/Sob Cardiovascular: No additional information not addressed in HPI [] GI: Denies abdominal pain, + nausea, vomiting, bloody stools or diarrhea [] : Denies dysuria or hematuria [] Musculoskeletal: Denies back pain or joint pain [] Integument: Denies rash or skin lesions [] Neurologic: + headache, no focal weakness or sensory changes [] All other systems were reviewed and found to be within normal limits, except as documented in this note. Current Medications Current Medications Current Medications Medications (Trade) Dose Ordered Sig/Tomas Start Time Stop Time Status Last Admin Dose Admin Acetaminophen (Tylenol) 1,000 mg 1X ONCE 09/11/19 02:00 09/11/19 02:01 DC 09/11/19 02:15 1,000 MG Ketorolac Tromethamine (Toradol 30mg Vial) 30 mg 1X ONCE 09/11/19 03:00 09/11/19 03:01 DC 09/11/19 03:00 30 MG Metoclopramide HCl (Reglan Vial) 10 mg 1X ONCE 09/11/19 03:00 09/11/19 03:01 DC 09/11/19 03:00 10 MG Sodium Chloride 1,000 ml @ 1,000 mls/hr Q1H 09/11/19 02:00 09/11/19 02:59 DC 09/11/19 01:50 1,000 MLS/HR Allergies Allergies Allergies Coded Allergies Type Severity Reaction Last Updated Verified No Known Drug Allergies 05/20/17 No Physical Exam Physical Exam Constitutional: Well developed, well nourished, no acute distress, non-toxic appearance. [] HENT: Normocephalic, atraumatic, bilateral external ears normal, oropharynx moist, no oral exudates, nose normal. [] Eyes: PERRLA, EOMI, conjunctiva normal, no discharge. [] Neck: Normal range of motion, no tenderness, supple, no stridor. [] Cardiovascular:Heart rate regular rhythm, no murmur [] Lungs & Thorax: Bilateral breath sounds clear to auscultation [] Abdomen: Bowel sounds normal, soft, no tenderness, no masses, no pulsatile masses. [] Skin: Warm, dry, no erythema, no rash. [] Extremities: No tenderness, no edema. [] Neurologic: Alert and oriented X 3, no focal deficits noted. [] Psychologic: Affect normal, judgement normal, mood normal. [] Current Patient Data Vital Signs Vital Signs Date Time Temp Pulse Resp B/P (MAP) Pulse Ox O2 Delivery O2 Flow Rate FiO2 09/11/19 01:15 102.7 128 18 134/88 (103) 99 Room Air 102.7 Lab Values Laboratory Tests Test 09/11/19 01:25 09/11/19 01:35 White Blood Count 5.8 x10^3/uL (4.0-11.0) Red Blood Count 4.71 x10^6/uL (3.50-5.40) Hemoglobin 14.9 g/dL (12.0-15.5) Hematocrit 44.4 % (36.0-47.0) Mean Corpuscular Volume 94 fL (79-100) Mean Corpuscular Hemoglobin 32 pg (25-35) Mean Corpuscular Hemoglobin Concent 34 g/dL (31-37) Red Cell Distribution Width 12.4 % (11.5-14.5) Platelet Count 208 x10^3/uL (140-400) Neutrophils (%) (Auto) 79 % (31-73) H Lymphocytes (%) (Auto) 11 % (24-48) L Monocytes (%) (Auto) 8 % (0-9) Eosinophils (%) (Auto) 2 % (0-3) Basophils (%) (Auto) 1 % (0-3) Neutrophils # (Auto) 4.6 x10^3/uL (1.8-7.7) Lymphocytes # (Auto) 0.7 x10^3/uL (1.0-4.8) L Monocytes # (Auto) 0.4 x10^3/uL (0.0-1.1) Eosinophils # (Auto) 0.1 x10^3/uL (0.0-0.7) Basophils # (Auto) 0.0 x10^3/uL (0.0-0.2) Urine Collection Type Unknown Urine Color Yellow Urine Clarity Clear Urine pH 7.0 (<5.0-8.0) Urine Specific [place] <=1.005 (1.000-1.030) Urine Protein Negative mg/dL (NEG-TRACE) Urine Glucose (UA) Negative mg/dL (NEG) Urine Ketones (Stick) Negative mg/dL (NEG) Urine Blood Negative (NEG) Urine Nitrite Negative (NEG) Urine Bilirubin Negative (NEG) Urine Urobilinogen Dipstick 0.2 mg/dL (0.2 mg/dL) Urine Leukocyte Esterase Negative (NEG) Urine RBC Occ /HPF (0-2) Urine WBC 1-4 /HPF (0-4) Urine Squamous Epithelial Cells Mod /LPF Urine Bacteria Many /HPF (0-FEW) Urine Mucus Slight /LPF Sodium Level 134 mmol/L (136-145) L Potassium Level 3.8 mmol/L (3.5-5.1) Chloride Level 100 mmol/L (98-107) Carbon Dioxide Level 27 mmol/L (21-32) Anion Gap 7 (6-14) Blood Urea Nitrogen 7 mg/dL (7-20) Creatinine 0.7 mg/dL (0.6-1.0) Estimated GFR (Cockcroft-Gault) 98.3 BUN/Creatinine Ratio 10 (6-20) Glucose Level 93 mg/dL (70-99) Lactic Acid Level 1.6 mmol/L (0.4-2.0) Calcium Level 8.8 mg/dL (8.5-10.1) Total Bilirubin 0.4 mg/dL (0.2-1.0) Aspartate Amino Transferase (AST) 363 U/L (15-37) H Alanine Aminotransferase (ALT) 37 U/L (14-59) Alkaline Phosphatase 66 U/L (46-116) Total Protein 7.1 g/dL (6.4-8.2) Albumin 3.4 g/dL (3.4-5.0) Albumin/Globulin Ratio 0.9 (1.0-1.7) L Influenza Type A Antigen Negative (NEGATIVE) Influenza Type B Antigen Negative (NEGATIVE) Laboratory Tests 09/11/19 01:25 Laboratory Tests 09/11/19 01:25 EKG EKG EKG interpretative 0 135, sinus tachycardia, normal axis, heart rate 115, no evidence of ST elevation [place] [] Radiology/Procedures Radiology/Procedures [facility] [address] [place] [address] IMAGING REPORT Signed PATIENT: NIURKA CARRASCO ACCOUNT: [id number] : 1990 LOCATION: ER AGE: 29 SEX: F EXAM STATUS: REG ER ORD. PHYSICIAN: CM REDMOND MD REASON: Shortness of breath/Fever PROCEDURE: PORTABLE CHEST 1V INDICATION: Shortness of breath and fever COMPARISON: December 2011 FINDINGS: Single view of chest obtained. Hypoexpanded examination with cardiac silhouette near upper limits of normal. Mild haziness within the left lung. IMPRESSION: * Mild haziness within the left lung. This could be secondary to overlying soft tissue structures but a groundglass opacity from causes such as pneumonitis is not excluded. A well-defined focal consolidation is not seen. Electronically signed by: Gustavo Lira MD (09/11/2019 2:30 AM) [id number] DICTATED and SIGNED BY: GUSTAVO LIRA MD DATE: 09/11/19 0230 [] Course & Med Decision Making Course & Med Decision Making Pertinent Labs and Imaging studies reviewed. (See chart for details) []29-year-old female presents to the emergency department complaints of chest pain, headache, fever. She denies any abdominal pain, nausea or vomiting. States her last menstrual period was August 31. She denies any neck pain. She has had some cough however decreased productiveness. Pain comes and goes currently denies any chest pain at this time. She more complains of her headache. Nothing makes pain worse, nothing make pain better. Labs/Imaging reviewed Suspected COVID 19 Abx provided upon discharge Tylenol for fever Encourage fluid intake Recommend quarantine for 14 days Dragon Disclaimer Dragon Disclaimer This electronic medical record was generated, in whole or in part, using a voice recognition dictation system. Departure Departure Impression: Primary Impression: Suspected 2019 novel coronavirus infection Additional Impression: Headache Disposition: 01 HOME, SELF-CARE Condition: IMPROVED Referrals: UNKNOWN PCP NAME (PCP) Patient Instructions: General Headache Without Cause, [id number], Pneumonia, Adult, [id number] Additional Instructions: Labs reviewed without acute findings Chest xray with ground-glass opacity appreciated - likely a viral type pneumonia Tylenol as needed for fever Toradol, Reglan provided in ER for headache Recommend quarantining yourself for at least 14 days Return to the ER with worsening symptoms, inability to complete daily activities without SOB Levaquin prescription provided upon discharge Scripts Levofloxacin (LEVAQUIN) 750 Mg Tablet 1 TAB PO DAILY for 5 Days, #5 TAB 0 Refills Prov: CM REDMOND MD 09/11/19 Problem Qualifiers Additional Impression: Headache Headache type: unspecified Headache chronicity pattern: unspecified pattern Intractability: not intractable Qualified Codes: R51 - Headache CM REDMOND MD Sep 11, 2019 01:40
[2019-09-11 01:50] LABS: BASO % 1 % (0-3); EOS # 0.1 x10^3/uL (0.0-0.7); EOS % 2 % (0-3); HEMATOCRIT 44.4 % (36.0-47.0); HEMOGLOBIN 14.9 g/dL (12.0-15.5); LYMPH # 0.7 x10^3/uL (1.0-4.8); LYMPH % 11 % (24-48); MEAN CORPUSCULAR HEMOGLOBIN 32 pg (25-35); MEAN CORPUSCULAR HGB CONC 34 g/dL (31-37); MEAN CORPUSCULAR VOLUME 94 fL (79-100); MONO # 0.4 x10^3/uL (0.0-1.1); MONO % 8 % (0-9); NEUT # 4.6 x10^3/uL (1.8-7.7); NEUT % 79 % (31-73); PLATELET COUNT 208 x10^3/uL (140-400); RED BLOOD COUNT 4.71 x10^6/uL (3.50-5.40); RED CELL DISTRIBUTION WIDTH 12.4 % (11.5-14.5); WHITE BLOOD COUNT 5.8 x10^3/uL (4.0-11.0)
[2019-09-11 01:57] LABS: BILIRUBIN,URINE NEGATIVE (NEG); CLARITY,URINE CLEAR; COLOR,URINE YELLOW; NITRITE,URINE NEGATIVE (NEG); PROTEIN,URINE NEGATIVE (NEG-TRACE); UROBILINOGEN,URINE 0.2 mg/dL (0.2 mg/dL)
[2019-09-11 01:58] LABS: CALCIUM 8.8 mg/dL (8.5-10.1); CREATININE 0.7 mg/dL (0.6-1.0); GFR 98.3; POTASSIUM 3.8 mmol/L (3.5-5.1)
[2019-09-11] MEDS ORDERED: ACETAMINOPHEN 500 MG TABLET PO ONE (02:00)
[2019-09-11] MEDS ORDERED: IV NORMAL SALINE 1000ML BAG 1,000 ML IV SCH (02:00)
[2019-09-11 02:01] LABS: BACTERIA,URINE MANY /HPF (0-FEW); RBC,URINE OCC /HPF (0-2)
[2019-09-11 02:02] LABS: SQUAMOUS EPITHELIAL CELL,UR MOD /LPF
[2019-09-11 02:08] LABS: INFLUENZA A PATIENT NEGATIVE (NEGATIVE); INFLUENZA B PATIENT NEGATIVE (NEGATIVE)
[2019-09-11 02:13] LABS: ALBUMIN 3.4 g/dL (3.4-5.0); ALBUMIN/GLOBULIN RATIO 0.9 (1.0-1.7); TOTAL BILIRUBIN 0.4 mg/dL (0.2-1.0); TOTAL PROTEIN 7.1 g/dL (6.4-8.2)
--- NOTE | 2019-09-11 02:32 | RAD ---
INDICATION: Shortness of breath and fever COMPARISON: December 2011 FINDINGS: Single view of chest obtained. Hypoexpanded examination with cardiac silhouette near upper limits of normal. Mild haziness within the left lung. IMPRESSION: * Mild haziness within the left lung. This could be secondary to overlying soft tissue structures but a groundglass opacity from causes such as pneumonitis is not excluded. A well-defined focal consolidation is not seen. Electronically signed by: Molina Lira MD (09/11/2019 2:30 AM) [id number]
[2019-09-11] MEDS ORDERED: LEVO750T31 PO (02:39)
[2019-09-11] MEDS ORDERED: KETOROLAC 30 MG/ML VIAL. IVP ONE (03:00)
[2019-09-11] MEDS ORDERED: METOCLOPRAMIDE HCL 10 MG/2 ML VIAL. IVP ONE (03:00)
--- NOTE | 2019-09-11 07:57 | EKG ---
[facility] [address] [place] [id number] Test Date: 2019-09-11 Test Time: 01:15:21 Pat Name: NIURKA CARRASCO Department: Room: Gender: F [employer]: : 1990 Requested By: CM REDMOND Order Number: [id number] Reading MD: Measurements Intervals [place] Rate: 115 P: 40 WV: 124 QRS: 42 QRSD: 78 T: 27 QT: 290 QTc: 403 Interpretive Statements SINUS TACHYCARDIA LEFT ATRIAL ABNORMALITY QRS(T) CONTOUR ABNORMALITY CONSIDER ANTEROSEPTAL MYOCARDIAL DAMAGE ABNORMAL ECG RI6.01 No previous ECG available for comparison
== END 2019-09-11 03:23 | disposition home or self-care (01) ==
LOC: ER 01:06
DX: Z20.828 Contact with and (suspected) exposure to other viral communicable diseases (principal); R51 Headache; R50.9 Fever, unspecified; R07.89 Other chest pain
CPT/HCPCS: 36415; 71045; 80053; 81001; 83605; 85025; 87040; 87086; 87804; 93005; 96374; 96375; 99285; J1885; J2765; J7030

== ENCOUNTER 2019-12-04 22:26 | Emergency (ER) | payer OTHER ==
[~2019-12-04 22:26] MED LIST changes: +LEVO750T31 PO
== END 2019-12-04 23:25 | disposition left against medical advice (07) ==
LOC: ER 22:26
DX: R51 Headache (principal); Z53.21 Procedure and treatment not carried out due to patient leaving prior to being seen by health care provider